=== PATIENT | male | born 1985 | race Asian ===

== ENCOUNTER 2020-09-28 14:57 | Emergency (ER) | payer MEDICAID ==
[~2020-09-28] VITALS: Ht 177.8 cm; Wt 130.6 kg
[2020-09-28 15:06] VITALS: Ht 177.8 cm; Wt 130.6 kg
[2020-09-28 17:28] VITALS: BP 125/74
== END 2020-09-28 17:28 | disposition home or self-care (01) ==
LOC: ED 14:57
DX: S83.91XA Sprain of unspecified site of right knee, initial encounter (principal); W18.30XA Fall on same level, unspecified, initial encounter; Y93.89 Activity, other specified; Y92.89 Other specified places as the place of occurrence of the external cause; Y99.8 Other external cause status